=== PATIENT | female | born 1980 | race Caucasian/White ===

== ENCOUNTER 2024-03-17 17:36 | Emergency (ER) | payer SELFPAY ==
[~2024-03-17] VITALS: Ht 165.1 cm; Wt 136.1 kg
[2024-03-17 17:54] VITALS: BP 133/87; PULSE 89; RESP 16; TEMP 97.8; O2SAT 95
--- NOTE | 2024-03-17 18:59 | NUR ---
PT AMB TO BED 11
[2024-03-17] MEDS: ONDANSETRON 4 MG ODT PO ONE (19:04)
[2024-03-17 19:25] LABS: APPEARANCE,URINE CLEAR (CLEAR); BILIRUBIN,URINE NEGATIVE (NEGATIVE); BLOOD, URINE NEGATIVE (NEGATIVE); COLOR,URINE YELLOW (YELLOW); LEUKOCYTE ESTERASE ,URINE NEGATIVE (NEGATIVE); NITRITE, URINE NEGATIVE (NEGATIVE); PROTEIN,URINE NEGATIVE (NEGATIVE); UGLUCOSE NEGATIVE (NEGATIVE); UROBILINOGEN,URINE 0.2 EU/dL (0.2 - 1)
[2024-03-17] MEDS ORDERED: ONDA-188 PO (19:28)
[2024-03-17 19:48] VITALS: BP 126/78; PULSE 71; RESP 16; TEMP 97.8; O2SAT 97
--- NOTE | 2024-03-17 19:48 | NUR ---
Patient discharged with v/s stable. Written and verbal after care instructions given and explained. Patient alert, oriented and verbalized understanding of instructions. Ambulatory with to car. All questions addressed prior to discharge. ID band removed. Patient advised to follow up with PMD. Rx of ZOFRAN given. Patient educated on indication of medication including possible reaction and side effects. Opportunity to ask questions provided and answered.
== END 2024-03-17 19:48 | disposition home or self-care (01) ==
LOC: MED 17:36
DX: R11.0 Nausea (principal); R19.7 Diarrhea, unspecified; Z79.1 Long term (current) use of non-steroidal anti-inflammatories (NSAID)
CPT/HCPCS: 81003; 81025; 82948; 99283; Q0162